=== PATIENT | male | born 1970 | race Caucasian/White ===

== ENCOUNTER 2019-08-13 00:32 | Emergency (ER) | payer MEDICAID ==
[~2019-08-13] VITALS: Ht 177.8 cm; Wt 79.5 kg
[~2019-08-13 00:32] MED LIST: ALBU6.7H9 INH; CLIN150C8 PO; COLC0.6T69 PO; NO HOME MEDS; ONDA4TAB12 PO; TAMS0.4C32 PO
--- NOTE | 2019-08-13 01:00 | NUR ---
REMINDED PT THAT HE STILL NEEDS TO VOID PT SLEEPING PEACFULLY WITH NO COMPLAINTS AT THIS TIME
--- NOTE | 2019-08-13 01:20 | NUR ---
URINE SENT TO LAB PT VOIDED IN URINAL
[2019-08-13 01:30] LABS: BASOPHILS # (AUTO) 0.1 X10'3 (0-0.2); BASOPHILS % (AUTO) 0.6 % (0-1); EOSINOPHILS # (AUTO) 0.2 X10'3 (0-0.9); EOSINOPHILS % (AUTO) 1.6 % (0-6); HEMATOCRIT 42.7 % (42.0-52.0); HEMOGLOBIN 14.4 g/dl (14.0-17.9); LYMPHOCYTES # (AUTO) 1.6 X10'3 (1.1-4.8); LYMPHOCYTES % (AUTO) 16.4 % (21-51); MEAN CORPUSCULAR HEMOGLOBIN 29.4 PG (27.0-31.0); MEAN CORPUSCULAR HGB CONC 33.7 g/dL (33.0-36.5); MEAN CORPUSCULAR VOLUME 87.1 FL (78-98); MEAN PLATELET VOLUME 7.4 FL (7.4-10.4); MONOCYTES % (AUTO) 9.6 % (2-12); NEUTROPHILS # (AUTO) 7.1 X10'3 (1.8-7.7); NEUTROPHILS % (AUTO) 71.8 % (42-75); PLATELET COUNT 341 X10'3 (140-440); RED CELL DISTRIBUTION WIDTH 14.1 % (11.5-14.5); WHITE BLOOD COUNT 9.9 X10'3 (4.5-11.0)
[2019-08-13 01:46] LABS: ALANINE AMINOTRANSFERASE 61 U/L (12-78); ALBUMIN 3.9 G/DL (3.4-5.0); ALBUMIN/GLOBULIN RATIO 0.9 (1.1-1.5); ALKALINE PHOSPHATASE 105 IU/L (46-116); ANION GAP 4 (8-16); ASPARTATE AMINO TRANSFERASE 31 U/L (10-37); BILIRUBIN,TOTAL 0.3 MG/DL (0.1-1.0); BLOOD UREA NITROGEN 11 MG/DL (7-18); BUN/CREATININE RATIO 9.3 (5.4-32.0); CALCIUM 9.2 MG/DL (8.5-10.1); CHLORIDE 105 MMOL/L (99-107); CREATININE 1.18 MG/DL (0.60-1.10); GLUCOSE 117 MG/DL (70-104); LIPASE 74 U/L (73-393); POTASSIUM 4.3 MMOL/L (3.5-5.1); SODIUM 141 MMOL/L (135-145); TOTAL CARBON DIOXIDE 31.9 MMOL/L (24-32); TOTAL PROTEIN 8.1 G/DL (6.4-8.2); eGFR 66 ML/MIN
[2019-08-13 03:22] LABS: CLARITY,URINE CLEAR (Clear); COLOR,URINE YELLOW (Yellow); GLUCOSE, URINE NEGATIVE (Neg); KETONES,URINE NEGATIVE (Neg); LEUKOCYTE ESTERASE ,URINE NEGATIVE (Neg); NITRITES, URINE NEGATIVE (Neg); OCCULT BLOOD,URINE NEGATIVE (Neg); PROTEIN,URINE TRACE mg/dl (Neg); UROBILINOGEN,URINE 0.2 E.U/dL (0.2-1.0)
[2019-08-13 03:27] LABS: UA COLLECTION TYPE CLN CATCH MIDSTREAM
[2019-08-13 03:30] LABS: BACTERIA,URINE NONE SEEN /HPF (Neg); RBC,URINE NONE SEEN /HPF (0-2); SQUAMOUS EPITHELIAL CELL,UR NONE SEEN /LPF (FEW); WBC,URINE 0-4 /HPF (0-4)
[2019-08-13 03:31] LABS: AMORPHOUS PHOSPHATES 2+; MUCUS STRANDS MODERATE /LPF (Neg)
[2019-08-13 05:10] VITALS: BP 124/72
== END 2019-08-13 05:11 | disposition home or self-care (01) ==
LOC: ER 00:32
DX: R10.10 Upper abdominal pain, unspecified (principal); F15.10 Other stimulant abuse, uncomplicated; J45.909 Unspecified asthma, uncomplicated; F17.200 Nicotine dependence, unspecified, uncomplicated; F12.90 Cannabis use, unspecified, uncomplicated; Z88.5 Allergy status to narcotic agent; Z88.8 Allergy status to other drugs, medicaments and biological substances; Z79.899 Other long term (current) drug therapy
CPT/HCPCS: 36415; 80053; 81001; 83690; 85025; 99283

== ENCOUNTER 2021-10-07 16:34 | Emergency (ER) | payer MEDICAID ==
[~2021-10-07] VITALS: Ht 160 cm; Wt 84.0 kg
[~2021-10-07 16:34] MED LIST changes: -COLC0.6T69 PO; +COLC0.6T72 PO
[2021-10-07 16:56] VITALS: BP 131/89
[2021-10-07] MEDS ORDERED: IBUP-1984 PO (17:30)
== END 2021-10-07 17:51 ==
LOC: ER 16:35
DX: S52.125A Nondisplaced fracture of head of left radius, initial encounter for closed fracture (principal); S00.31XA Abrasion of nose, initial encounter; M25.522 Pain in left elbow; M25.512 Pain in left shoulder; J45.909 Unspecified asthma, uncomplicated; F12.90 Cannabis use, unspecified, uncomplicated; F15.90 Other stimulant use, unspecified, uncomplicated; Z88.8 Allergy status to other drugs, medicaments and biological substances; Z79.2 Long term (current) use of antibiotics; Z79.899 Other long term (current) drug therapy; X58.XXXA Exposure to other specified factors, initial encounter; Y93.89 Activity, other specified; Y92.89 Other specified places as the place of occurrence of the external cause; Y99.8 Other external cause status
CPT/HCPCS: 73030; 73080; 99284

== ENCOUNTER 2025-06-01 01:11 | Emergency (ER) | payer MEDICAID ==
[~2025-06-01] VITALS: Ht 170.2 cm; Wt 85.4 kg
[~2025-06-01 01:11] MED LIST changes: +ALBU6.7H14 INH; -ALBU6.7H9 INH; +CLIN-214 PO; -CLIN150C8 PO; -COLC0.6T72 PO; +COLC0.6T78 PO; +ONDA-243 PO; -ONDA4TAB12 PO
[2025-06-01 01:12] VITALS: BP 117/78; PULSE 93; RESP 16; TEMP 98; O2SAT 98
--- NOTE | 2025-06-01 01:20 | Physician Documentation ---
History of Present Illness ~ Chief Complaint: Laceration Stated Complaint: R HAND LAC Time Seen by MD: 01:19 OK to notify your PCP?: Yes Primary Medical Doctor: fred HPI Brought in by EMS for laceration This is a 54-year-old male coming in for a laceration of the right dorsal hand near the metacarpals of the 1st and 2nd phalanges. Patient was cutting a box with a razor blade and was cutting towards himself when he got too far and into his hand. This happened just prior to arrival. 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 Does not remember last tetanus shot no other associated symptoms at this time. No SI. Tetanus Within 5 Years: No Medication Reconciliation Allergies: Coded Allergies: hydrocodone (Verified Allergy, Intermediate, NAUSEA/ MAKE PT SICK TO STOMACH, 04/08/16) naproxen (Unverified Allergy, Mild, VOMIT, 08/13/19) Scheduled Albuterol Sulfate (Proventil Hfa), 2 PUFFS INH Q6H Clindamycin HCl (Clindamycin HCl CAPSULE), 3 CAP PO QID Colchicine (Colchicine), 1 TAB PO DAILY Tamsulosin Hcl (Tamsulosin Hcl), 1 CAP PO DAILY Scheduled PRN ONDANSETRON ODT 4mg tablet (Ondansetron Odt), 1 TABLET PO Q6H PRN for nausea/vomiting Miscellaneous Medications Home Med List (No Home Medications), (Reported) Past Medical History Past Medical History: Asthma Past Surgical History: no surgical history Alcohol Use: Rarely Drug Use: marijuana, methamphetamine Lives with: Family Lives In: Home Occupation: employed Physical Exam Vital Signs: Temperature: 98.0, Source: Temporal, Heart Rate: 93, Respiratory Rate: 16, BP: 117/78, Pulse Oximetry: 98, Weight: 85.400 Oxygen Flow Rate: 0 Physical Exam General: Awake [no] distress. Verbal Head: No trauma Eyes: Nl lids Nl conjunctiva. No eye discharge ENT: Mucous membranes Nl. Lips Nl. No lesions Neck: Supple. No JVD. No visible mass Resp: Rate normal. No respiratory distress. No retractions. Normal air flow. No wheezes, rhonchi, or rales. Heart: Regular rhythm. No murmur. No rub Abdomen: Soft. Nontender. No guarding. No rebound Musc/skeletal: 5 cm laceration right dorsal hand linear laceration no motor or sensory deficits. Skin: No rash. No petechiae. Not diaphoretic Neuro: Alert, oriented. Normal speech Progress Results/Orders Results/Orders Orders - DEWAYNE MOSES MD Hand, Complete (3vw Min) (06/01/25 01:54) Completed Orders - DEWAYNE MOSES MD Tetanus/Pertuss/Diph Acell/Pf (Boostrix (06/01/25 01:50) Hand, Complete (3vw Min) (06/01/25 01:54) Lidocaine 1% W/Epi 1:100,000 (Xylocaine (06/01/25 02:00) Vital Signs 06/01/25 01:12 Temp 98.0 Pulse 93 Resp 16 B/P (MAP) 117/78 Pulse Ox 98 O2 Flow Rate 0 Medical Decision Making Additional information obtaine: old records Findings Patient was given Tdap vaccine since he could not remember his last tetanus Area of injury number with lidocaine 1% with epi Bleeding controlled with compression Four 0 plain gut used as patient did not want to return to the ED for suture removal. Wound was cleaned with 1 L of normal saline and 4x4s. X-ray shows no fracture or foreign bodies Patient was alone during examination No social abnormalities expected. Patient has a home and feels safe Reviewed nursing triage notes No complications during suturing procedure minimal blood loss. Eight sutures used simple interrupted. Instructions given can not get wet for the next several days. Hand wrapped after procedure and cleaned once again. Clinical impression laceration. Return precautions discussed. Differential Dx:Considerations: Include: Laceration, Fracture, Retained foreign body Departure Disposition: HOME / SELF CARE / HOMELESS Impression: Primary Impression: Laceration Condition: Stable Discharge Instructions: Laceration Care, Adult, [id number] Referrals: NO PRIMARY CARE PROVIDER (PCP) Education Educated: Patient Educated regarding: diagnosis Signature Scribe Signature: No scribe Attestation: Signed on June 02, 2025 at 1:34 p.m. by DEWAYNE Weston MD Jun 01, 2025 01:20
[2025-06-01] MEDS: LIDOcaine 1% W/epiNEPHrine 1:100,000 20ml vial SQ ONE (02:00)
[2025-06-01] MEDS: TETanus/Pertussis (Acell)/Diphther VAC/PF (Tdap-Adult) 0.5ml syringe IMVAC ONE (02:08)
--- NOTE | 2025-06-01 04:17 | RADIOLOGY REPORT ---
PROCEDURE: Left hand radiographs. INDICATION: r/o foreign body fracture TECHNIQUE: 3 views of the left hand were obtained. COMPARISON: None FINDINGS: There is no evidence of fracture or dislocation. Joint spaces are maintained. The soft tissues are unremarkable. IMPRESSION: 1. No fracture or dislocation.
== END 2025-06-01 04:58 | disposition home or self-care (01) ==
LOC: ER 01:11
DX: S61.411A Laceration without foreign body of right hand, initial encounter (principal); F12.90 Cannabis use, unspecified, uncomplicated; F15.90 Other stimulant use, unspecified, uncomplicated; Z88.5 Allergy status to narcotic agent; Z79.899 Other long term (current) drug therapy; W26.8XXA Contact with other sharp object(s), not elsewhere classified, initial encounter; Y92.89 Other specified places as the place of occurrence of the external cause; Y93.89 Activity, other specified; Y99.8 Other external cause status
CPT/HCPCS: 12002; 73130; 90471; 90715; 99283; J7030; A6449